=== PATIENT | female | born 1940 | race Caucasian/White ===

== ENCOUNTER 2017-09-14 11:47 | Inpatient (IN) | payer OTHER ==
[~2017-09-14] VITALS: Ht 154.9 cm; Wt 63.1 kg
[2017-09-14 11:51] VITALS: Ht 154.9 cm; Wt 63.1 kg
[2017-09-14 13:22] LABS: ALBUMIN 3.7 g/dL (3.4-5.0); ALKALINE PHOSPHATASE 85 U/L (46-116); ALT/SGPT 26 U/L (14-59); AST/SGOT 25 U/L (15-37); CALCIUM 9.1 mg/dL (8.5-10.1); CARBON DIOXIDE 25.9 mmol/L (21-32); CHLORIDE SERUM 105 mmol/L (98-107); CHOLESTEROL 164 mg/dL (<200); CREATININE SERUM 0.7 mg/dL (0.6-1.0); GLUCOSE SERUM 104 mg/dL (74-106); HDL CHOLESTEROL 46 mg/dL (40-60); POTASSIUM SERUM 3.9 mmol/L (3.5-5.1); SODIUM SERUM 141 mmol/L (136-145); TOTAL PROTEIN, SERUM 7.7 g/dL (6.4-8.2)
[2017-09-14 14:01] LABS: LIPASE 179 IU/L (73-393)
[2017-09-14 14:02] LABS: BASOPHIL % 0.1 % (0-2); PLATELET COUNT 275 x10^3mcL (130-400)
[2017-09-14 14:09] LABS: RED CELL DISTRIBUTION WIDTH 14.8 % (11.5-14.5)
[2017-09-14 15:19] VITALS: BP 132/73
[2017-09-14 16:40] VITALS: BP 134/74
[2017-09-14 17:28] LABS: MAGNESIUM 2.1 mg/dL (1.8-2.4); PHOSPHOROUS 3.5 mg/dL (2.5-4.9)
[2017-09-14 17:33] LABS: T3 TOTAL 1.32 ng/mL
[2017-09-14 17:43] LABS: FREE T4 1.09 ng/dL (0.76-1.46); FREE THYROXINE INDEX 3.5 ug/dL (1.4-4.5)
[2017-09-14 21:09] VITALS: BP 128/71
[2017-09-15 05:55] VITALS: BP 122/66
[2017-09-15 06:40] LABS: microscopic required? NO
[2017-09-15 07:01] LABS: CALCIUM 7.9 mg/dL (8.5-10.1); CARBON DIOXIDE 25.5 mmol/L (21-32); CHLORIDE SERUM 108 mmol/L (98-107); CREATININE SERUM 0.6 mg/dL (0.6-1.0); GLUCOSE SERUM 95 mg/dL (74-106); POTASSIUM SERUM 3.7 mmol/L (3.5-5.1); SODIUM SERUM 142 mmol/L (136-145)
[2017-09-15 07:42] LABS: BASOPHIL % 0.2 % (0-2); PLATELET COUNT 226 x10^3mcL (130-400); RED CELL DISTRIBUTION WIDTH 15.5 % (11.5-14.5)
[2017-09-15 07:59] LABS: UA SPECIFIC GRAVITY 1.015 (1.005-1.035); urine erythrocyte NEGATIVE (NEGATIVE)
[2017-09-15 08:22] LABS: AMPHETAMINE QUAL UR NONE DETECTED (NEG <=1000)
[2017-09-15 09:22] VITALS: BP 122/67
[2017-09-15 17:27] VITALS: BP 129/72
[2017-09-15 21:47] VITALS: BP 113/61
[2017-09-16 06:02] VITALS: BP 105/55
[2017-09-16 06:41] LABS: BASOPHIL % 0.5 % (0-2); PLATELET COUNT 203 x10^3mcL (130-400)
[2017-09-16 06:56] LABS: RED CELL DISTRIBUTION WIDTH 15.6 % (11.5-14.5)
[2017-09-16 07:00] LABS: CALCIUM 7.5 mg/dL (8.5-10.1); CARBON DIOXIDE 26.4 mmol/L (21-32); CHLORIDE SERUM 110 mmol/L (98-107); CREATININE SERUM 0.6 mg/dL (0.6-1.0); GLUCOSE SERUM 86 mg/dL (74-106); MAGNESIUM 2.3 mg/dL (1.8-2.4); PHOSPHOROUS 2.2 mg/dL (2.5-4.9); POTASSIUM SERUM 4.1 mmol/L (3.5-5.1); SODIUM SERUM 143 mmol/L (136-145)
[2017-09-16] MEDS ORDERED: LEVAQUIN750 MG PO (09:49)
[2017-09-16] MEDS ORDERED: FLAGYL500 MG PO (09:54)
[2017-09-16] MEDS ORDERED: LAC PO (09:54)
[2017-09-16 10:00] VITALS: BP 135/85
[2017-09-16 12:10] VITALS: BP 135/85
== END 2017-09-16 13:40 | disposition home or self-care (01) | DRG 720 ==
LOC: ED 11:47 → EDSEX 11:47 → DU 14:30
PROVIDERS: Emergency Medicine; Family Medicine
DX: A41.9 Sepsis, unspecified organism (principal); N17.0 Acute kidney failure with tubular necrosis; E83.51 Hypocalcemia; E87.8 Other disorders of electrolyte and fluid balance, not elsewhere classified; E83.39 Other disorders of phosphorus metabolism; I42.2 Other hypertrophic cardiomyopathy; K29.00 Acute gastritis without bleeding; E86.0 Dehydration; Z68.27 Body mass index [BMI] 27.0-27.9, adult; Z90.49 Acquired absence of other specified parts of digestive tract; G90.8 Other disorders of autonomic nervous system
CPT/HCPCS: 83880; 84439; 90658; J1956; J2405; J2765; J3490; J7030; Q0092; Q9967